=== PATIENT | female | born 1955 | race Caucasian/White ===

== ENCOUNTER 2023-04-01 10:43 | Outpatient (REF) | payer OTHER, SELFPAY ==
--- NOTE | ~2023-04-01 | MM_ITS ---
EXAMINATION: MM SCREENING DIGITAL BREAST TOMOSYNTHESIS, BILATERAL CLINICAL INFORMATION: Screening. Asymptomatic. The lifetime risk of breast cancer based on the Tyrer-Cuzick Model is 5.5%. COMPARISON: Mammography: July 07, 2018 and June 08, 2017 TECHNIQUE: Digital breast tomosynthesis is performed in both the craniocaudal and mediolateral oblique views along with computer-aided detection (CAD). Synthesized 2D images are generated from the tomosynthesis. FINDINGS: The breasts are almost entirely fatty (ACR BI-RADS breast composition Category a). There are no significant masses, abnormal calcifications, or other abnormalities. MM/MM tomosynthesis screening BI IMPRESSION: No significant changes from prior exam. ASSESSMENT: BI-RADS 1: Negative RECOMMENDATION: Routine annual mammography screening. This patient's information was entered into a reminder system with a target due date for their next mammogram.
== END 2023-04-01 10:44 | disposition home or self-care (01) ==
LOC: HO.MAMMO 10:43
PROVIDERS: PCP Physician Assistant; Visit Provider Physician Assistant
DX: Z12.31 Encounter for screening mammogram for malignant neoplasm of breast (principal)
CPT/HCPCS: 77063; 77067

== ENCOUNTER 2023-04-13 07:00 | Outpatient (REF) | payer OTHER, SELFPAY ==
[2023-04-13 07:23] LABS: MANUAL DIFF FLAG NO
[2023-04-13 07:47] LABS: Basophils Percent Auto 0.3 % (0-2); Eosinophils Absolute Auto 0.1 X10*3/uL (0.0-0.4); Hematocrit 38.2 % (37.0-47.0); Hemoglobin 11.9 g/dl (12.0-16.0); Imm Gran Abs Auto 0.02 X10*3/uL (0.00-0.03); Imm Gran Pct Auto 0.3 % (0.0-0.4); Lymphocytes Absolute Auto 1.9 X10*3/uL (1.2-4.9); Lymphocytes Percent Auto 27.5 % (20-40); Mean Corpuscular HGB Conc 31.2 g/dl (31.0-35.0); Mean Corpuscular Hemoglobin 26.6 pg (27.0-33.0); Mean Corpuscular Volume 85.5 fL (80.0-98.0); Mean Platelet Volume 9.6 fL (9.4-12.3); Monocytes Absolute Auto 0.4 X10*3/uL (0.1-1.2); Monocytes Percent Auto 6.3 % (2-11); Neutrophils Absolute Auto 4.4 x10*3/uL (2.0-8.3); Neutrophils Percent Auto 63.6 % (45-73); Platelet Count 279 X10*3/uL (160-400); Red Blood Count 4.47 X10*6/uL (4.20-5.50); Red Cell Distribution Width 13.5 % (11.0-16.0); White Blood Count 6.9 X10*3/uL (4.8-10.8)
[2023-04-13 08:18] LABS: Alanine Aminotransferase 18 U/L (0-31); Albumin Level 3.8 g/dL (3.5-5.0); Alkaline Phosphatase 139 U/L (39-117); Anion Gap 12 (12-20); Aspartate Amino Transferase 23 U/L (5-31); Bilirubin Total 0.4 mg/dL (0.0-1.0); Blood Urea Nitrogen 19 mg/dL (9-16); Calcium 8.8 mg/dL (8.4-10.2); Carbon Dioxide 23 mmol/L (22-29); Chloride 106 mmol/L (96-108); Cholesterol 184 mg/dL; Estimated Glomerular Filt Rate 56; Glucose Random 169 mg/dL (60-115); HDL Cholesterol 58 mg/dL; LDL Cholesterol Calculated 79 mg/dl; Sodium 137 mmol/L (135-145); Total Protein 7.4 g/dL (6.5-8.0); Triglycerides 238 mg/dL
[2023-04-13 08:38] LABS: Free T4 (Free Thyroxine) 0.96 ng/dL (0.71-1.85); Thyroid Stimulating Hormone 1.17 uIU/mL (0.32-4.0); Vitamin D 25-OH Total 6.5 ng/mL (>30)
[2023-04-15 15:18] LABS: TS Negative Control Passed; TS Panel A 3; TS Panel B 6; TS Positive Control Passed; TSpotTB Borderline (Negative)
== END 2023-04-13 07:01 | disposition home or self-care (01) ==
LOC: HO.LAB 07:00
PROVIDERS: Visit Provider Physician Assistant
DX: Z00.01 Encounter for general adult medical examination with abnormal findings (principal); M06.9 Rheumatoid arthritis, unspecified; E11.8 Type 2 diabetes mellitus with unspecified complications; I10 Essential (primary) hypertension; E55.9 Vitamin D deficiency, unspecified; I25.2 Old myocardial infarction; Z11.1 Encounter for screening for respiratory tuberculosis
CPT/HCPCS: 36415; 80053; 80061; 82306; 84439; 84443; 85025; 86481

== ENCOUNTER 2024-04-06 11:01 | Outpatient (REF) | payer OTHER, SELFPAY ==
--- NOTE | ~2024-04-06 | MM_ITS ---
EXAMINATION: MM SCREENING DIGITAL BREAST TOMOSYNTHESIS, BILATERAL CLINICAL INFORMATION: Screening. Asymptomatic. COMPARISON: Mammography: This study is compared with prior exams dating back to 2017. TECHNIQUE: Digital breast tomosynthesis is performed in both the craniocaudal and mediolateral oblique views along with computer-aided detection (CAD). Synthesized 2D images are generated from the tomosynthesis. FINDINGS: There are scattered areas of fibroglandular density (ACR BI-RADS breast composition Category b). There are no significant masses, abnormal calcifications, or other abnormalities. Scattered benign calcifications are present in each breast. MM/MM tomosynthesis screening BI IMPRESSION: No mammographic evidence of malignancy. ASSESSMENT: BI-RADS BI-RADS 2 - Benign Findings RECOMMENDATION: Routine annual mammography screening. 1 year F/U This examination should not preclude the clinical evaluation of a suspicious palpable abnormality. This patient's information was entered into a reminder system with a target due date for their next mammogram.
== END 2024-04-06 11:02 | disposition home or self-care (01) ==
LOC: HO.MAMMO 11:01
PROVIDERS: PCP Nurse Practitioner Primary Care; Visit Provider Nurse Practitioner Primary Care
DX: Z12.31 Encounter for screening mammogram for malignant neoplasm of breast (principal)
CPT/HCPCS: 77063; 77067

== ENCOUNTER → 2024-04-06 11:15 | Outpatient (BNV) | payer OTHER, SELFPAY | PROVIDERS: PCP Nurse Practitioner Primary Care; Visit Provider Radiology Diagnostic Radiology | DX: Z12.31 Encounter for screening mammogram for malignant neoplasm of breast (principal) | CPT/HCPCS: 77063; 77067 ==

== ENCOUNTER → 2024-12-12 07:02 | Day surgery (SDC) | payer OTHER, SELFPAY ==
[2024-12-07 15:56] VITALS: BMI 29.7
--- NOTE | 2024-12-08 14:41 | HO.ANESPROP2 ---
HPI - Anesthesia Eval Consult details Narrative: 69yo F for Right Cataract Extraction IOL Insertion No previous cataract on record CAD with ID/Stent [id number] Past Medical History Medical History (Updated 12/07/24 @ 15:32 by Cinthya Corrigan, AYANNA) Anemia Cataracts, bilateral Insomnia Low back pain History of ST elevation myocardial infarction (STEMI) Rheumatoid arthritis Diabetes Arthritis HTN (hypertension) Surgical History Surgical History (Updated 12/07/24 @ 15:28 by Cinthya Corrigan RN) Hx of heart artery stent Hx of knee surgery Hx of appendectomy Meds Allergies Allergy/AdvReac Type Severity Reaction Status Date / Time Pork/Porcine Containing Allergy Unknown SWELLING Unverified 08/16/20 19:16 Products [PORK/PORCINE CONTAINING PRODUCTS] Home Medications ?Medication ?Instructions ?Recorded ?Confirmed ?Last Taken ?Type atorvastatin 80 mg tablet 80 mg PO BEDTIME 12/07/24 12/07/24 Unknown History folic acid 1 mg tablet 1 mg PO DAILY 12/07/24 12/07/24 Unknown History hydroxychloroquine 200 mg tablet 200 mg PO DAILY 12/07/24 12/07/24 Unknown History insulin glargine 100 unit/mL (3 20 unit subcut DAILY 12/07/24 12/07/24 Unknown History mL) subcutaneous pen (Lantus Solostar U-100 Insulin) lidocaine 5 % topical patch 1 patch topical DAILY 12/07/24 12/07/24 Unknown History lisinopril 10 mg tablet 10 mg PO DAILY 12/07/24 12/07/24 Unknown History metformin 1,000 mg tablet 1,000 mg PO BID 12/07/24 12/07/24 Unknown History methotrexate sodium 2.5 mg tablet 25 mg PO QWEEK 12/07/24 12/07/24 Unknown History metoprolol succinate 25 mg 25 mg PO DAILY 12/07/24 12/07/24 Unknown History tablet,extended release 24 hr sulfasalazine 500 mg tablet PO 12/07/24 Unknown History trazodone 50 mg tablet 50 mg PO BEDTIME 12/07/24 12/07/24 Unknown History Exam Height,Weight and Vital Signs: Height 5 ft Weight 69.059 kg Assessment and Plan Assessment Anesthesia Assessment: Chart Reviewed
--- NOTE | 2024-12-12 09:03 | PC.NURSE ---
patient had a hedache and was thirsty, dint sleep , and hungry and didnt want to stay for the procedure. patients family spoke to her in [place] and she just wanted to reschedule. i was getting patient to bring in and still didnt want the procedure today.
== END ==
LOC: HO.SSS 07:03
PROVIDERS: PCP Nurse Practitioner Primary Care; Visit Provider Ophthalmology
DX: H25.11 Age-related nuclear cataract, right eye (principal); Z53.29 Procedure and treatment not carried out because of patient's decision for other reasons; R51.9 Headache, unspecified
CPT/HCPCS: J3301